=== PATIENT | female | born 1965 | race Caucasian/White ===

== ENCOUNTER 2024-11-05 11:19 | Day surgery (SDC) | payer MEDICAID ==
[2024-10-26 14:14] LABS: BASOPHILS % (AUTO) 0.7 % (0-1); EOSINOPHILS # (AUTO) 0.2 X10'3 (0-0.9); LYMPHOCYTES # (AUTO) 1.4 X10'3 (1.1-4.8); LYMPHOCYTES % (AUTO) 25.7 % (21-51); MEAN CORPUSCULAR HEMOGLOBIN 30.2 PG (27.0-31.0); MEAN CORPUSCULAR HGB CONC 33.4 g/dL (33.0-36.5); MEAN CORPUSCULAR VOLUME 90.3 FL (78-98); MEAN PLATELET VOLUME 7.8 FL (7.4-10.4); MONOCYTES # (AUTO) 0.4 X10'3 (0-0.9); MONOCYTES % (AUTO) 7.2 % (2-12); NEUTROPHILS # (AUTO) 3.5 X10'3 (1.8-7.7); NEUTROPHILS % (AUTO) 62.4 % (42-75); PRE OP HEMATOCRIT 41.8 % (35.0-45.0); PRE OP HEMOGLOBIN 13.9 g/dL (12.0-16.0); PRE OP PLATELET COUNT 268 X10'3 (140-440); PRE OP WHITE BLOOD COUNT 5.6 10'3 (4.8-10.8); RED BLOOD COUNT 4.63 X10'6 (4.20-5.60); RED CELL DISTRIBUTION WIDTH 13.8 % (11.5-14.5)
[2024-10-26 14:20] LABS: ALBUMIN 4.1 G/DL (3.4-5.0); ALBUMIN/GLOBULIN RATIO 1.3 (1.1-1.5); ALKALINE PHOSPHATASE 93 IU/L (46-116); BLOOD UREA NITROGEN 12 MG/DL (7-18); BUN/CREATININE RATIO 15.4 (10.0-20.0); CALCIUM 9.2 MG/DL (8.5-10.1); CHLORIDE 109 MMOL/L (99-107); CREATININE 0.78 MG/DL (0.40-0.90); PRE OP ALT 32 U/L (30-65); PRE OP ANION GAP 5 (8-16); PRE OP AST 17 U/L (10-37); PRE OP BILIRUB, TOTAL 0.5 MG/DL (0.0-1.0); PRE OP GLUCOSE 96 MG/DL (70-104); PRE OP SODIUM 145 MMOL/L (135-145); TOTAL CARBON DIOXIDE 30.9 MMOL/L (24-32); TOTAL PROTEIN 7.2 G/DL (6.4-8.2); eGFR 75 ML/MIN
[~2024-11-05] VITALS: Ht 172.7 cm; Wt 76.6 kg
[2024-11-05] VITALS (9 sets, daily range): BP systolic 138–164; BP diastolic 63–90; PULSE 70–88; RESP 14–23; TEMP 98.9; O2SAT 96–100
[~2024-11-05 11:19] MED LIST: TAPI60CR TOP; [UNRECOGNIZED DRUG - CODE] TOP
[2024-11-05] MEDS: famotidine 20mg tablet PO ONE (11:49)
[2024-11-05] MEDS: ringers solution, lacted 1,000 ML IV SCH (11:50)
[2024-11-05] MEDS ORDERED: morphine 4 MG/ML inj SYRINge IV PRN (13:50)
[2024-11-05] MEDS ORDERED: morphine 2 MG/ML inj. syringe IV PRN (13:50)
[2024-11-05] MEDS ORDERED: labetalol 20mg/4ml (5mg/ml) syringe IV PRN (13:50)
[2024-11-05] MEDS ORDERED: ringers solution, lacted 1,000 ML IV SCH (13:50)
[2024-11-05] MEDS ORDERED: HYDROmorphone/PF 0.2 MG/ML SYRINGE IV PRN ×2 (13:50)
[2024-11-05] MEDS ORDERED: ondansetron/PF 4mg/2ml inj IV PRN (13:50)
[2024-11-05] MEDS ORDERED: meperidine/PF 25mg/ml syringe IV PRN (13:50)
[2024-11-05] MEDS ORDERED: LIDOcaine 1% W/epiNEPHrine 1:100,000 20ml vial ONE (15:22)
[2024-11-05] MEDS ORDERED: sevoflurane 250ml liquid IH ONE (15:29)
[2024-11-05] MEDS ORDERED: rocuronium 10mg/ml inj IV ONE (15:34)
[2024-11-05] MEDS ORDERED: propofol inj 0 ML IV ONE ×2 (15:34→16:01)
[2024-11-05] MEDS ORDERED: midazolam 1 mg/ML 2ml injection ONE (15:34)
[2024-11-05] MEDS ORDERED: fentaNYL/PF 50MCG/1 ML 2ML syringe ONE (15:34)
[2024-11-05] MEDS ORDERED: propofol inj 20 ML IV ONE (16:01)
[2024-11-05] MEDS ORDERED: dexamethasone sod phosphate 4mg/ml inj. ONE (16:01)
[2024-11-05] MEDS ORDERED: ondansetron/PF 4mg/2ml inj ONE (16:02)
[2024-11-05] MEDS ORDERED: sugammadex 200mg/2ml injection IV ONE (16:23)
[2024-11-05] MEDS: acetaminophen 1,000mg/100ml IV 100 ML IV PRN (17:08)
[2024-11-05] MEDS: oxyCODONE/APAP 5-325mg tablet PO ONE (17:29)
== END 2024-11-05 17:57 | disposition home or self-care (01) ==
LOC: PAS 11:19
PROVIDERS: ATTEND Colon & Rectal Surgery
DX: K64.4 Residual hemorrhoidal skin tags (principal); K64.8 Other hemorrhoids; Z79.899 Other long term (current) drug therapy; Z98.890 Other specified postprocedural states; F17.210 Nicotine dependence, cigarettes, uncomplicated; Z85.828 Personal history of other malignant neoplasm of skin
CPT/HCPCS: 36415; 46260; 71046; 80053; 82948; 85025; 93005; A6223; J0131; J1100; J2250; J2405; J2704; J3010; J3490; J7030; J7120; Z7506; Z7508; Z7512; A4215; A4402; A4618; A6449; A7000